=== PATIENT | male | born 1950 | race Caucasian/White ===

== ENCOUNTER → 2016-10-15 | Outpatient (CLI) | payer OTHER ==
--- NOTE | 2016-10-15 16:45 | DI ---
History: Left shoulder pain, trauma Comparison: None Findings: No bone marrow contusion, or edema. Notes is the subacromial/subdeltoid bursa. Severe degenerative changes in the acromioclavicular joint including a large amount of intra-articula r fluid, and edema of the acromion and distal clavicle. Long head biceps tendon is normal in signal intensity and location. There is no abnormal signal intensity in the supraspinatus tendon indicating tendinitis/tendinosis. There is no MRI indication of rotator cuff tear. There is no joint effusion There is no indication of labral tear on this noncontrast study. Impression Severe degenerative changes in the acromioclavicular joint.
== END ==
LOC: MRI 12:14
PROVIDERS: ATTEND Family Medicine
DX: S49.92XD Unspecified injury of left shoulder and upper arm, subsequent encounter (principal); M25.512 Pain in left shoulder; M19.012 Primary osteoarthritis, left shoulder
CPT/HCPCS: 73221